=== PATIENT | female | born 1955 | race Two or more races ===

== ENCOUNTER 2018-05-24 11:18 | Outpatient (CLI) | payer OTHER ==
[~2018-05-24 11:18] MED LIST: ADVAIR 5001 DISK W/1 IH; ALBUTEROL17 GM IH; AMBIEN10 MG PO; ATROVENT 00.5 MG/2.5 IH; BUDEO.25 IH; CITALOPRAM HBR40 MG PO; CLONAZEPAM2 MG PO; COZAAR100 MG PO; DOXAZOSIN MESYLA4 MG; GLIPIZIDE10 MG PO; JANUMET XR 50-1 EAC1 PO; LANTUS100 U/ML SQ; METFORMIN HCL1000 MG PO; METOPROLOL SUC100 MG PO; MYSOLINE250 MG; NEXIUM40 MG/PACK PO; NOVOLOG100 U/M1; PROMETHAZINE W118 ML PO; SIMVASTATIN20 MG PO; SINGULAIR10 MG PO; TRAM1TAB98 PO; XOPENEX0.63 MG/3 IH; ZANTAC300 MG PO
== END 2018-05-24 11:43 | disposition home or self-care (01) ==
LOC: LAB 11:18
DX: D68.8 Other specified coagulation defects (principal); E78.2 Mixed hyperlipidemia; N39.0 Urinary tract infection, site not specified; I10 Essential (primary) hypertension; R07.89 Other chest pain

== ENCOUNTER 2019-02-25 12:25 | Emergency (ER) | payer OTHER ==
[~2019-02-25] VITALS: Ht 157.5 cm; Wt 96.2 kg
[2019-02-25] MEDS ORDERED: PULMICORT1 MG/2 ML (12:48)
[2019-02-25] MEDS ORDERED: IPRAT-ALBUT 0.5-3 ML IH (12:48)
[2019-02-25] MEDS ORDERED: NOVOLOG100 UNIT/1 (12:48)
[2019-02-25] MEDS ORDERED: MUCINEX600 MG PO (12:49)
[2019-02-25] MEDS ORDERED: TUSSIN DM CLEA118 M1 (12:49)
[2019-02-25] MEDS ORDERED: INDERAL LA120 MG PO (12:49)
[2019-02-25] MEDS ORDERED: CYMBALTA60 MG PO (12:50)
== END 2019-02-25 15:00 | disposition home or self-care (01) ==
LOC: ER 12:25
DX: B34.9 Viral infection, unspecified (principal)

== ENCOUNTER 2019-04-10 06:48 | Day surgery (SDC) | payer OTHER ==
[~2019-04-10 06:48] MED LIST changes: +CLONAZEPAM0.5 MG PO; +CYMBALTA60 MG PO; +FORTAMET1000 MG PO; +HUM; +INDERAL LA120 MG PO; +IPRAT-ALBUT 0.5-3 ML IH; +LEVOTHYROXINE25 MCG PO; +MUCINEX600 MG PO; +MYSOLINE250 MG PO; +NASAL MIST126 ML; +NOVOLOG100 UNIT/1; +PULMICORT1 MG/2 ML; +TUSSIN DM CLEA118 M1; +ZOCOR40 MG PO
== END 2019-04-10 16:55 | disposition home or self-care (01) ==
LOC: CIR.AMB 06:48
DX: M65.341 Trigger finger, right ring finger (principal)

== ENCOUNTER 2019-11-24 13:07 | Emergency (ER) | payer OTHER ==
[~2019-11-24] VITALS: Ht 157.5 cm; Wt 83.9 kg
[2019-11-24] MEDS ORDERED: NOVOLOG100 UNIT/1 (13:30)
== END 2019-11-24 20:29 | disposition home or self-care (01) ==
LOC: ER 13:07
DX: N39.0 Urinary tract infection, site not specified (principal)

== ENCOUNTER 2021-04-28 09:31 | Emergency (ER) | payer OTHER ==
[~2021-04-28] VITALS: Ht 154.9 cm; Wt 88.9 kg
[2021-04-28] MEDS ORDERED: FENOFIBRATE160 MG PO (09:55)
[2021-04-28] MEDS ORDERED: VAGINAL ITCH CR30 GM VAG (13:52)
[2021-04-28] MEDS ORDERED: TAMS0.4C PO (13:53)
[2021-04-28] MEDS ORDERED: BETAMETHASONE V15 GM TOP (13:55)
== END 2021-04-28 14:10 | disposition home or self-care (01) ==
LOC: ER 09:31
DX: N39.0 Urinary tract infection, site not specified (principal); N20.0 Calculus of kidney; N89.8 Other specified noninflammatory disorders of vagina; Z88.2 Allergy status to sulfonamides; Z88.8 Allergy status to other drugs, medicaments and biological substances; E11.9 Type 2 diabetes mellitus without complications; Z79.4 Long term (current) use of insulin; I10 Essential (primary) hypertension

== ENCOUNTER 2021-11-16 14:40 | Outpatient (CLI) | payer OTHER ==
[~2021-11-16 14:40] MED LIST changes: +BETAMETHASONE V15 GM TOP; +FENOFIBRATE160 MG PO; +TAMS0.4C PO; +VAGINAL ITCH CR30 GM VAG
== END 2021-11-16 14:42 | disposition home or self-care (01) ==
LOC: RAD → LAB 14:40
PROVIDERS: ATTEND Urology
DX: N30.00 Acute cystitis without hematuria (principal)

== ENCOUNTER 2022-08-16 14:23 | Emergency (ER) | payer OTHER ==
[~2022-08-16] VITALS: Ht 157.5 cm; Wt 88.5 kg
[2022-08-16] MEDS ORDERED: LOSARTAN POTAS100 MG PO (14:53)
[2022-08-16] MEDS ORDERED: MONTELUKAST SOD10 MG PO (14:53)
[2022-08-16] MEDS ORDERED: PROPRANOLOL HCL60 MG PO (14:54)
[2022-08-16] MEDS ORDERED: PANTOPRAZOLE SO40 MG PO (14:54)
[2022-08-16] MEDS ORDERED: GABAPENTIN800 M1 PO (14:55)
[2022-08-16] MEDS ORDERED: CLOPIDOGREL BIS75 MG PO (14:55)
[2022-08-16] MEDS ORDERED: GLIPIZIDE10 MG PO (14:56)
[2022-08-16] MEDS ORDERED: LEVOTHYROXINE25 MC1 PO (14:56)
[2022-08-16] MEDS ORDERED: DULOXETINE HCL60 MG PO (14:56)
[2022-08-16] MEDS ORDERED: PRIMIDONE250 MG PO (14:56)
[2022-08-16] MEDS ORDERED: METFORMIN HCL1000 M3 PO (14:56)
[2022-08-16] MEDS ORDERED: DICLOFENAC SOD100 GM TOP (14:57)
[2022-08-16] MEDS ORDERED: FUROSEMIDE40 MG PO (14:57)
[2022-08-16] MEDS ORDERED: VERAPAMIL ER120 MG PO (14:57)
[2022-08-16] MEDS ORDERED: PROPRANOLOL HC120 MG PO (14:57)
[2022-08-16] MEDS ORDERED: SIMVASTATIN20 MG PO (14:57)
[2022-08-16] MEDS ORDERED: ZOLPIDEM TARTRA10 MG PO (14:57)
[2022-08-16] MEDS ORDERED: DILTIAZEM ER120 M2 PO (14:58)
[2022-08-16] MEDS ORDERED: DICYCLOMINE HCL20 MG PO (14:58)
[2022-08-16] MEDS ORDERED: PAXLOVID 300-11 EACH PO (19:05)
[2022-08-16] MEDS ORDERED: TUSNEL LIQUID178 ML PO (19:05)
[2022-08-16] MEDS ORDERED: DOLOGEN CAPLET1 EACH PO (19:05)
== END 2022-08-16 19:10 | disposition home or self-care (01) ==
LOC: ER 14:23
DX: U07.1 COVID-19 (principal); J06.9 Acute upper respiratory infection, unspecified; Z88.2 Allergy status to sulfonamides; Z88.8 Allergy status to other drugs, medicaments and biological substances

== ENCOUNTER 2022-10-12 12:03 | Emergency (ER) | payer OTHER ==
[~2022-10-12] VITALS: Ht 157.5 cm; Wt 88.0 kg
[~2022-10-12 12:03] MED LIST changes: +CLOPIDOGREL BIS75 MG PO; +DICLOFENAC SOD100 GM TOP; +DICYCLOMINE HCL20 MG PO; +DILTIAZEM ER120 M2 PO; +DOLOGEN CAPLET1 EACH PO; +DULOXETINE HCL60 MG PO; +FUROSEMIDE40 MG PO; +GABAPENTIN800 M1 PO; +LEVOTHYROXINE25 MC1 PO; +LOSARTAN POTAS100 MG PO; +METFORMIN HCL1000 M3 PO; +MONTELUKAST SOD10 MG PO; +PANTOPRAZOLE SO40 MG PO; +PAXLOVID 300-11 EACH PO; +PRIMIDONE250 MG PO; +PROPRANOLOL HC120 MG PO; +PROPRANOLOL HCL60 MG PO; +TUSNEL LIQUID178 ML PO; +VERAPAMIL ER120 MG PO; +ZOLPIDEM TARTRA10 MG PO
== END 2022-10-12 19:17 | disposition home or self-care (01) ==
LOC: ER 12:03
PROVIDERS: General Practice
DX: R19.7 Diarrhea, unspecified (principal); R10.9 Unspecified abdominal pain; I10 Essential (primary) hypertension; E11.9 Type 2 diabetes mellitus without complications; Z79.84 Long term (current) use of oral hypoglycemic drugs; Z88.2 Allergy status to sulfonamides; Z88.6 Allergy status to analgesic agent; Z91.041 Radiographic dye allergy status

== ENCOUNTER 2024-03-16 09:55 | Outpatient (CLI) | payer OTHER ==
[2024-03-20] MEDS ORDERED: CRESTOR40 MG PO (09:01)
[2024-03-20] MEDS ORDERED: ISOSORBIDE DINI30 MG PO (09:03)
[2024-03-20] MEDS ORDERED: OZEMPIC0.25 MG/02 (09:04)
[2024-03-20] MEDS ORDERED: PLAVIX75 MG PO (12:28)
== END 2024-03-16 09:58 | disposition home or self-care (01) ==
LOC: TOM 09:55
PROVIDERS: ATTEND Obstetrics & Gynecology
DX: R10.2 Pelvic and perineal pain (principal); N94.0 Mittelschmerz; N94.89 Other specified conditions associated with female genital organs and menstrual cycle

== ENCOUNTER 2024-03-27 05:13 | Day surgery (SDC) | payer OTHER ==
[2024-03-20 08:55] LABS: HEMOGLOBIN 12.1 g/dL (12.0-15.00); MEAN CELL VOLUME 87.9 fL (80.00-100.00); MEAN CORPUSCULAR HEMOGLOBIN 29.5 pg (27.00-32.0); MEAN CORPUSCULAR HGB CONC 33.6 g/dl (32.0-36.0); PLATELET COUNT 350 K/uL (150-450); RED CELL DISTRIBUTION WIDTH 13.9 % (11.5-14.5)
[2024-03-20 09:04] LABS: PH,URINE 5.5 (5.0-8.0); URINE APPEARANCE Cloudy; URINE BILIRRUBIN Negative (NEGATIVE); URINE BLOOD Negative; URINE COLOR Dark Yellow; URINE GLUCOSE Negative (NEGATIVE); URINE KETONE Negative (NEGATIVE); URINE LEUKOCYTE Negative; URINE NITRATE Negative; URINE PROTEIN Negative (NEGATIVE); URINE UROBILINOGEN 0.2 E.U./dl
[2024-03-20 09:08] LABS: URINE BACTERIA 778.2 uL (0.0-1933); URINE EPITHELIAL CELLS 13.4 uL (0.0-38.8); URINE RBC 9.5 uL (0.0-20.8); URINE WBC 6.8 uL (0.0-23.2)
[2024-03-20 09:19] LABS: INR 1.06; PARTIAL THROMBOPLASTIN TIME 27.3 SECONDS (22.0-34.0); PROTHROMBIN TIME 11.5 SECONDS (9.0-11.5)
[2024-03-20 09:25] LABS: URINE CAST 0.44 uL (0.0-1.40)
[2024-03-20 09:49] LABS: BILIRUBIN TOTAL 0.37 mg/dL (0.3-1.2); CALCIUM 10.2 mg/dL (8.5-10.1); CREATININE SERUM 0.57 mg/dL (0.55-1.02); GFR 106.12; GLOBULINA 3.1 G/DL (2.4-3.5); POTASSIUM 4.54 mEq/L (3.5-5.1); TOTAL PROTEIN 7.1 gm/dL (6.4-8.2)
[~2024-03-27 05:13] MED LIST changes: +CRESTOR40 MG PO; +ISOSORBIDE DINI30 MG PO; +OZEMPIC0.25 MG/02; +PLAVIX75 MG PO
[2024-03-27] MEDS ORDERED: CEFAZOLIN SODIUM 1,000 MG VIAL ONE ×2 (08:55→09:16)
== END 2024-03-27 12:00 | disposition home or self-care (01) ==
LOC: CIR.AMB 05:13
PROVIDERS: ATTEND Orthopaedic Surgery Hand Surgery
DX: M65.332 Trigger finger, left middle finger (principal); M65.342 Trigger finger, left ring finger; G56.02 Carpal tunnel syndrome, left upper limb; Z88.2 Allergy status to sulfonamides; Z88.6 Allergy status to analgesic agent; Z91.041 Radiographic dye allergy status; I10 Essential (primary) hypertension; J45.909 Unspecified asthma, uncomplicated; E03.8 Other specified hypothyroidism; E78.00 Pure hypercholesterolemia, unspecified

== ENCOUNTER 2024-07-23 16:40 | Emergency (ER) | payer OTHER ==
[~2024-07-23] VITALS: Ht 157.5 cm; Wt 77.1 kg
[2024-07-23] MEDS ORDERED: BENZONATATE 100 MG CAPSULE PO ONE (23:00)
[2024-07-23 23:59] LABS: BASO % 0.8 % (0.1-1.2); EOS # 0.18 (0.04-0.54); EOS % 2.8 % (0.7-7.0); HEMATOCRIT 37.8 % (34.1-44.9); HEMOGLOBIN 12.3 g/dL (11.2-15.7); LYMPH # 3.49 (1.18-3.74); MONO # 0.73 (0.24-0.82); MONO % 11.5 % (4.7-12.5); NEUT # 1.88 (1.56-6.13); NEUT % 29.7 % (34.0-71.1); PLATELET COUNT 368 K/uL (163-369); RED BLOOD COUNT 4.39 M/uL (3.93-5.22); RED CELL DISTRIBUTION WIDTH 13.5 % (11.6-14.4)
[2024-07-24 00:21] LABS: COVID-19 AG NEGATIVE (NEGATIVE)
[2024-07-24 00:24] LABS: INFLUENZA A AG NEGATIVE (NEGATIVE); INFLUENZA B AG NEGATIVE (NEGATIVE)
== END 2024-07-24 01:11 | disposition home or self-care (01) ==
LOC: ER 16:40
PROVIDERS: Preventive Medicine Public Health & General Preventive Medicine
DX: J06.9 Acute upper respiratory infection, unspecified (principal); R05.9 Cough, unspecified; I10 Essential (primary) hypertension; E11.9 Type 2 diabetes mellitus without complications; Z79.84 Long term (current) use of oral hypoglycemic drugs; Z20.822 Contact with and (suspected) exposure to COVID-19; Z88.2 Allergy status to sulfonamides; Z88.5 Allergy status to narcotic agent; Z91.041 Radiographic dye allergy status